=== PATIENT | male | born 1940 | race African-American/Black ===

== ENCOUNTER 2019-01-25 06:37 | Day surgery (SDC) | payer MEDICARE, MEDICAID ==
[2019-01-21 09:11] LABS: BASOPHILS % (AUTO) 1.3 % (0.0-2.0); EOSINOPHILS % (AUTO) 2.1 % (0.0-3.0); HEMATOCRIT 45.1 % (42.0-52.0); HEMOGLOBIN 14.6 G/DL (14.2-18.0); LYMPHOCYTES % (AUTO) 20.1 % (20.0-45.0); MEAN CORPUSCULAR VOLUME 89 FL (80-99); MONOCYTES % (AUTO) 5.7 % (1.0-10.0); NEUTROPHILS % (AUTO) 70.8 % (45.0-75.0); PLATELET COUNT 237 K/UL (150-450); RED BLOOD COUNT 5.07 M/UL (4.70-6.10); RED CELL DISTRIBUTION WIDTH 11.8 % (11.6-14.8)
[2019-01-21 09:12] LABS: ANION GAP 8 mmol/L (5-15); BLOOD UREA NITROGEN 21 mg/dL (7-18); CALCIUM 9.2 MG/DL (8.5-10.1); CARBON DIOXIDE 30 MMOL/L (21-32); CHLORIDE 106 MMOL/L (98-107); CREATININE 1.6 MG/DL (0.55-1.30); POTASSIUM 3.9 MMOL/L (3.5-5.1); SODIUM 143 MMOL/L (136-145)
--- NOTE | 2019-01-21 16:30 | Pre-op HX & Phy Repo 2 SIG ---
DATE OF ADMISSION: 01/25/2019 PRESURGICAL INTERNAL MEDICINE HISTORY AND PHYSICAL: DATE OF EVALUATION: 01/21/2019 REASON FOR EVALUATION: I was asked by Dr. Brian Wheeler to see this 78-year-old male, who going for elective surgery on the left eye. The patient has nuclear sclerotic cataract, left eye. The surgery scheduled for 01/25/2019 at [facility]. The patient was seen and evaluated at outpatient department [facility]. PAST MEDICAL HISTORY/REVIEW OF SYSTEMS: Remarkable for history of hypertension, coronary heart disease, atherosclerotic heart disease, permanent pacemaker, kidney stones, renal insufficiency stage II, history of hard of hearing. No history of stroke or seizures. Denies history of thyroid problem. No pulmonary problem or no bronchitis. Denies history of heart attack. No diabetes. History of heartburn and upper GI endoscopy. FAMILY HISTORY: Both parents of old age. SURGERY: Permanent pacemaker in July last year and left inguinal hernia repair a long time ago. ALLERGIES: Denied allergies to medication or food. PRESENT MEDICATIONS: The patient used to take medication for high blood pressure, but last 6 months did not take any medication . HABITS: Denies history of smoke or alcohol habits. No street drugs. PHYSICAL EXAMINATION: GENERAL: Alert, well-developed, well-nourished male in his 70s. No acute distress. VITAL SIGNS: Blood pressure 150/91, temperature 98.7, pulse 70 regular, the patient's O2 saturation 98% on room air. SKIN: Dry, clear. No rashes. LYMPH NODES: Not enlarged. HEENT: Eyes, full description per Dr. Brian Wheeler. Mouth, clear, moist. Hard of hearing. NECK: Supple. No jugular venous distention. Carotid artery +2. Trachea midline. CHEST: Left upper quadrant permanent pacemaker. No deformity. LUNGS: Clear to auscultation, percussion. No rales or rhonchi. HEART: Regular pacemaker pacing 70 beats per minute, no murmur. No S3 or S4. ABDOMEN: Soft. Right inguinal hernia reduced. No rebound. Liver, spleen not enlarged. EXTREMITIES: No edema. No varicose vein. GENITOURINARY TRACT: No dysuria. No CVA tenderness. NERVOUS SYSTEM: No tremor. No nystagmus. DIAGNOSTIC DATA: ECG, . Prolonged QT interval, left ventricular hypertrophy, and nonspecific T-wave abnormality. LAB WORK: Significant for BUN 21, creatinine 1.6. Otherwise normal. The patient is to be NPO after midnight Friday for surgery. IMPRESSION: 1. Cataract, left eye. 2. Hypertension, untreated. 3. Atherosclerotic heart disease. 4. Permanent pacemaker. 5. GERD. 6. Hard of hearing. 7. Renal insufficiency stage II. PLAN: Cataract extraction, left eye with intraocular lens implant per Dr. Brian Wheeler. CONCLUSION: The patient is a 78-year-old who has history of hypertension, permanent pacemaker. The patient does not take any medication. The patient has stage II renal insufficiency. The patient's condition optimized for surgery. So, I recommend to find a doctor who will follow the patient for pacemaker and hypertension. Nicolas Morgan M.D. DR: SHRUTHI JOB#: [id number] CC:
--- NOTE | 2019-01-22 13:00 | Pre-Procedure Note/Attestation ---
Pre-Procedure Note/Attestation Complete Prior to Procedure Planned Procedure: left Procedure Narrative: Cataract extraction With Intraocular Lens Implant Left Eye Indications for Procedure Pre-Operative Diagnosis: NS Cataract Left Eye Attestation I attest that I discussed the nature of the procedure; its benefits; risks and complications; and alternatives (and the risks and benefits of such alternatives ), prior to the procedure, with the patient (or the patient's legal telephone services sales representative). I attest that, if there was a reasonable possibility of needing a blood transfusion, the patient (or the patient's legal telephone services sales representative) was given the [facility] standardized written summary, pursuant to the Luis Channahon Blood Safety Act ([place] Health and Safety Code # 1645, as amended). I attest that I re-evaluated the patient just prior to the surgery and that there has been no change in the patient's H&P, except as documented below: Brian Wheeler MD Jan 22, 2019 13:00
--- NOTE | 2019-01-22 13:03 | Opthalmology H&P ---
Ophthalmology H&P H&P Chief Complaint: decreased vision in left eye HPI Vision Affects Ability to: read, focus/use eyes together Past Ocular History: glaucoma HPI Narrative Blurry Vision Exam Visual Acuity: OD 20/60 OS 20/80 Tension: OD 10 OS 12 Eye Exam: normal OU: external exam, palpebral fissure-width, marginal reflex distance, levator function, corneas, anterior chambers; findings: lens - +2 NS Cataract OS, fundus exam Assessment/Plan Treatment Plan: cataract extraction w/ lens implant Goals of Treatment: improvement of vision Attestation Attestation The risks and benefits of the surgery as well as alternative procedures were explained to the patient in detail. Brian Wheeler MD Jan 22, 2019 13:03
[2019-01-25] VITALS (8 sets, daily range): BP systolic 145–185; BP diastolic 76–89
[~2019-01-25] VITALS: Ht 175.3 cm; Wt 68.0 kg
[~2019-01-25 06:37] MED LIST: NKM
[2019-01-25] MEDS ORDERED: Proparacaine 0.5% Opth Soln 15ml LEFT EYE ONE (07:00)
[2019-01-25] MEDS ORDERED: Tetracaine 0.5% Opth 4ml Soln LEFT EYE ONE (07:00)
[2019-01-25] MEDS ORDERED: Maxitrol Opth Oint 3.5gm ONE (07:00)
[2019-01-25] MEDS ORDERED: Akten 3.5% 1ml Btl LEFT EYE ONE (07:00)
[2019-01-25] MEDS ORDERED: Pred Forte 1% Opth Susp 1ml ONE (07:00)
[2019-01-25] MEDS ORDERED: Dexamethasone 4mg/ml vial ONE (07:00)
[2019-01-25] MEDS ORDERED: Pilocarpine 1% Opth 15ml Soln ONE (07:00)
[2019-01-25] MEDS: Tropicamide 1% Opth 15ml Soln LEFT EYE SCH ×3 (08:44→09:07)
[2019-01-25] MEDS: Cyclopentolate 1% Opth Sol 2ml LEFT EYE SCH ×3 (08:44→09:07)
[2019-01-25] MEDS: Diclofenac Sod 0.1% Op Soln LEFT EYE SCH ×3 (08:44→09:07)
[2019-01-25] MEDS: Phenylephrine 10% Opth Soln 5ml LEFT EYE SCH ×3 (08:44→09:07)
[2019-01-25] MEDS: Tobramycin Op Soln 0.3% 5ml LEFT EYE SCH ×3 (08:44→09:07)
[2019-01-25] MEDS ORDERED: fentaNYL 100 mcg/2 mL IV ONE (08:56)
[2019-01-25] MEDS ORDERED: Midazolam 2mg/2ml Inj ONE (08:56)
[2019-01-25] MEDS ORDERED: Sodium Hyaluronate 14 mg/ml 0.85ml ONE (09:21)
[2019-01-25] MEDS ORDERED: BSS 500ml btl ONE (09:21)
[2019-01-25] MEDS ORDERED: BSS 15ml BTL ONE (09:21)
[2019-01-25] MEDS ORDERED: EPINEPHrine 1mg/1ml Amp ONE (09:21)
[2019-01-25] MEDS ORDERED: Povidone-Iodine 5% opth solution ONE (09:21)
[2019-01-25] MEDS ORDERED: Propofol 200mg/20ml IV ONE (10:01)
--- NOTE | 2019-01-25 10:54 | Immediate Post-Op Evaluation ---
Immediate Post-Op Evalulation Immediate Post-Op Evalulation Procedure: L eye cataract extraction with IOL Date of Evaluation: Jan 25, 2019 Time of Evaluation: 10:52 IV Fluids: 300 Blood Products: none Estimated Blood Loss: none Urinary Output: none Blood Pressure Systolic: 146 Blood Pressure Diastolic: 72 Pulse Rate: 62 Respiratory Rate: 20 O2 Sat by Pulse Oximetry: 98 Temperature (Fahrenheit): 97.7 Pain Score (1-10): 1 Nausea: No Vomiting: No Complications none Patient Status: reacts, patent, none Hydration Status: adequate Morris Abebe MD Jan 25, 2019 10:54
--- NOTE | 2019-01-27 10:18 | Brief Operative Note ---
Immediate Post Operative Note Operative Note Chief Complaint: blurry vision Pre-op Diagnosis: NS Cataract Left Eye Procedure: phaco with IOL, OS Post-op Diagnosis: Pseudophakia Post-op Diagnosis: same as pre-op Findings: consistent w/pre-op dx studies Surgeon: Summer Anesthesiologist: Andrae Anesthesia: MAC Specimen: none Complications: none Condition: stable Fluids: LR Estimated Blood Loss: none Drains: none Implant(s) used?: Yes Brian Wheeler MD Jan 27, 2019 10:18
--- NOTE | 2019-01-27 10:19 | Operative Note - PDOC ---
Operative Note Operative Note Date of Operation/Procedure: Jan 25, 2019 Chief Complaint: blurry vision Pre-op Diagnosis: NS Cataract Left Eye Procedure: phaco with IOL, OS Post-op Diagnosis: Pseudophakia Post-op Diagnosis: same as pre-op Operative Findings: consistent w/pre-op dx studies Surgeon: Summer Anesthesiologist: Andrae Anesthesia: MAC Specimen: none Complications: none Condition: stable Fluids: LR Estimated Blood Loss: none Drains: none Implant(s) used?: Yes Indications for Procedure cataract Description of Procedure This patient has been complaining visually significant cataract in the affected eye with the best corrected visual acuity under moderate glare conditions worse. The patient complains of difficulties with glare in performing activities of daily living and wants to manage personal affairs with comfort and accuracy and see well enough to move with safety at home and outdoors. The risks, benefits and alternatives of the procedure were discussed with the patient in the office prior to scheduling surgery. All questions from the patient were answered after the surgical procedure was explained in detail. The risks of the procedure as explained to the patient include, but are not limited to, pain, infection, bleeding, loss of vision, retinal detachment, need for further surgery, loss of lens nucleus, double vision, etc. Alternative procedures were discussed which include, to do nothing or seek a second opinion. Informed consent for this procedure was obtained from the patient. The patient was referred to a primary care physician for a cardiopulmonary clearance prior to surgery, after proper evaluation was done patient was properly scheduled for outpatient surgery. The patient was brought to the operating room where the anesthesiologist established I.V. lines and cardiac monitoring leads. Mild intravenous sedation was administered. The patient was then prepared with a 5% solution of povidone -iodine to the conjunctival fornix and lashes, and a 5% solution of povidone- iodine to the lids and periorbital skin. The patient was then draped in the usual sterile fashion. A lid speculum was then placed in the operative eye. A keratome blade was then used to create a biplanar incision into the anterior chamber. Viscoelastics was then instilled into the anterior chamber. A curvilinear capsulorrhexis was then fashioned with an utrata forceps followed by a BSS and G 27 cannula was used for hydrodissection and hydro delineation of the lens nucleus. Paracentesis incision was made at 3 o'clock with sharp blade. The phacoemulsification unit, after being properly adjusted and tested, was then used to emulsify the nucleus followed by aspiration and irrigation of residual cortical material. Healon was then instilled into the anterior chamber. The corneal wound was then enlarged to the size of the optic with the mtiesh keratome blade. The intraocular lens was then inspected for right power and size and thought to be satisfactory. Then the lens was gently placed in the capsular bag. Positioning within the capsular bag was confirmed by direct visualization. Optic centration was accomplished with a Sinskey hook. Viscoelastics was removed from the anterior chamber using the irrigation and aspiration unit. The corneal wound was then tested for leaks and none were found. The lid speculum were then removed. Sponge and needle counts were correct. An eye patch and shield were placed over the operative eye. The patient was taken to the recovery room in stable condition. There were no complications. The patient tolerated the procedure well. The patient was then transferred to the ambulatory surgery unit in stable and satisfactory condition , was given detailed written instructions and asked to follow up in the office the next day. Brian Wheeler MD Jan 27, 2019 10:19
== END 2019-01-25 13:00 | disposition home or self-care (01) ==
LOC: SUR 06:37
DX: H25.12 Age-related nuclear cataract, left eye (principal); I10 Essential (primary) hypertension; I25.10 Atherosclerotic heart disease of native coronary artery without angina pectoris; N28.9 Disorder of kidney and ureter, unspecified; K21.9 Gastro-esophageal reflux disease without esophagitis; H91.90 Unspecified hearing loss, unspecified ear; Z95.0 Presence of cardiac pacemaker; Z87.442 Personal history of urinary calculi
CPT/HCPCS: 36415; 66984; 80048; 85025; 85610; 85730; 93005; J0171; J1100; J2704; J3010; J3370; V2632; 94003; 94150; J2250